=== PATIENT | male | born 1985 | race Caucasian/White ===

== ENCOUNTER 2016-08-03 08:14 | Emergency (ER) | payer SELFPAY ==
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
[2016-08-03 08:55] VITALS: BP 145/85
== END 2016-08-03 08:55 | disposition home or self-care (01) ==
LOC: ER 08:14
DX: S61.211A Laceration without foreign body of left index finger without damage to nail, initial encounter (principal); W26.0XXA Contact with knife, initial encounter; Y93.89 Activity, other specified; Y92.009 Unspecified place in unspecified non-institutional (private) residence as the place of occurrence of the external cause
CPT/HCPCS: 99282